=== PATIENT | male | born 1985 | race Caucasian/White ===

== ENCOUNTER 2019-01-15 10:29 | Emergency (ER) | payer OTHER, SELFPAY ==
[~2019-01-15] VITALS: Ht 182.9 cm; Wt 125.0 kg
[2019-01-15 10:30] VITALS: BP 165/87
== END 2019-01-15 11:46 | disposition home or self-care (01) ==
LOC: M ED 10:29
DX: J06.9 Acute upper respiratory infection, unspecified (principal)

== ENCOUNTER 2023-04-28 13:05 | Inpatient (IN) | payer MEDICAID, SELFPAY ==
[2023-04-28] VITALS (16 sets, daily range): BP systolic 98–152; BP diastolic 56–99; TEMP 97.6–98.3; O2SAT 92–100
[~2023-04-28] VITALS: Ht 185.4 cm; Wt 154.4 kg
[2023-04-28] MEDS ORDERED: ETOMIDATE INJ 20MG/10ML VIAL IV ONE (13:25)
[2023-04-28] MEDS ORDERED: ROCURONIUM BROMIDE 50MG/5ML VIAL IV ONE (13:25)
[2023-04-28] MEDS ORDERED: NS 1,000 ML IV ONE (13:25)
[2023-04-28] MEDS: propofoL 1,000 MG in IV 1 EA IV SCH ×3 (13:40→22:45)
[2023-04-28 13:46] LABS: ABG BASE EXCESS -4.9 (-2.0-2.0); ABG HCO3 23.2 MMOL/L (22.0-26.0); ABG O2 SATURATION 94.8 % (95.0-99.0); ABG PARTIAL PRESSURE CO2 54.5 mmHg (35.0-45.0); ABG PARTIAL PRESSURE O2 76.3 mmHg (75.0-100.0); ABG STANDARD HCO3 20.4 MMOL/L. (22.0-26.0); ABG TOTAL CO2 24.9 MMOL/L (22.0-29.0)
[2023-04-28 13:49] LABS: ABG pH (ARTERIAL) 7.247 UNITS (7.350-7.450)
[2023-04-28 13:58] LABS: HEMATOCRIT 47.9 % (42.0-52.0); HEMOGLOBIN 16.2 g/dl (13.5-17.5); MEAN CORPUSCULAR HEMOGLOBIN 30.1 pg (27.0-33.0); MEAN CORPUSCULAR HGB CONC 33.8 g/dl (32.0-36.5); PLATELET COUNT, AUTOMATED 200 10^3/uL (150-450); RED BLOOD COUNT 5.38 10^6/uL (4.30-6.10)
[2023-04-28] MEDS ORDERED: NS 1,000 ML IV SCH (14:10)
[2023-04-28 14:27] LABS: ETHYL ALCOHOL (ETHANOL) < 0.003 % (0.000-0.010)
[2023-04-28 14:28] LABS: ACETAMINOPHEN LEVEL < 2.0 UG/ML (10.0-20.0)
[2023-04-28 14:29] LABS: SALICYLATE LEVEL < 3.0 MG/DL (<30)
[2023-04-28 14:37] LABS: PHENCYCLIDINE URINE NEGATIVE (NEGATIVE)
[2023-04-28 14:38] LABS: ALBUMIN 4.3 G/DL (3.2-5.2); ALKALINE PHOSPHATASE 104 U/L (46-116); ALT/SGPT 942 U/L (7.0-40); BILIRUBIN,DIRECT 0.1 MG/DL (<0.4); BILIRUBIN,TOTAL 0.3 MG/DL (0.3-1.2); BLOOD UREA NITROGEN 31 MG/DL (9-23); CALCIUM LEVEL 9.3 MG/DL (8.5-10.1); CARBON DIOXIDE LEVEL 23 MMOL/L (20-31); CHLORIDE LEVEL 104 MMOL/L (98-107); CK-MB VALUE MASS 125.8 NG/ML (<3.6); CREATININE FOR GFR 2.61 MG/DL (0.70-1.30); GLOMERULAR FILTRATION RATE 29.6 (>60); GLUCOSE, FASTING 64 MG/DL (60-100); POTASSIUM SERUM 5.3 MMOL/L (3.5-5.1); SODIUM LEVEL 139 MMOL/L (136-145); THYROID STIMULATING HORMONE 4.624 uIU/ML (0.55-4.78); TOTAL PROTEIN 7.3 G/DL (5.7-8.2)
[2023-04-28 14:38] LABS: AMPHETAMINES LEVEL URINE NEGATIVE (NEGATIVE); BARBITURATES URINE NEGATIVE (NEGATIVE); BENZODIAZEPINES URINE NEGATIVE (NEGATIVE); COCAINE METABOLITE URINE NEGATIVE (NEGATIVE); METHADONE URINE NEGATIVE (NEGATIVE); OPIATES URINE NEGATIVE (NEGATIVE)
[2023-04-28 14:40] LABS: CANNABINOIDS URINE POSITIVE (NEGATIVE)
[2023-04-28 14:57] LABS: AST/SGOT 1084 U/L (<34); CPK CREATINE PHOSPHOKINASE 4502 U/L (46-171); MB/CK RELATIVE INDEX 2.79 (< OR =4)
[2023-04-28 15:34] LABS: ABG BASE EXCESS -4.6 (-2.0-2.0); ABG O2 SATURATION 90.6 % (95.0-99.0); ABG PARTIAL PRESSURE CO2 51.8 mmHg (35.0-45.0); ABG PARTIAL PRESSURE O2 59.3 mmHg (75.0-100.0); ABG STANDARD HCO3 20.6 MMOL/L. (22.0-26.0); ABG TOTAL CO2 24.6 MMOL/L (22.0-29.0); ABG pH (ARTERIAL) 7.266 UNITS (7.350-7.450)
[2023-04-28 15:41] LABS: LYMPHOCYTES 6 % (16-44); MONOCYTES 3 % (0-5); NEUTROPHILS 84 % (28-66); PLATELET ESTIMATE NORMAL (NORMAL)
[2023-04-28 15:42] LABS: ANISOCYTOSIS 1+
[2023-04-28 16:00] LABS: LIPASE 396 U/L (12-53)
[2023-04-28] MEDS ORDERED: PIPERACILLIN/TAZOBACTAM SOD 4.5 GM in D5W MINI-BAG PLUS 50 ML IV ONE (16:50)
[2023-04-28] MEDS ORDERED: NS IV ONE (17:40)
[2023-04-28] MEDS ORDERED: HOME MED LIST COMPLETE! XX SCH (18:10)
[2023-04-28] MEDS ORDERED: MIDAZOLAM INJ 2MG/2ML VIAL IV PRN (18:25)
[2023-04-28] MEDS ORDERED: VANCOMYCIN HCL 1,000 MG, VIAL MATE ADAPTER 1 EACH in D5W 250 ML IV SCH (18:25)
[2023-04-28] MEDS: NS 1,000 ML IV SCH (18:25)
[2023-04-28] MEDS ORDERED: VANCOMYCIN HCL 1,000 MG, VIAL MATE ADAPTER 1 EACH in D5W 250 ML IV ONE ×2 (20:00→21:00)
[2023-04-28 20:32] LABS: ABG BASE EXCESS -3.2 (-2.0-2.0); ABG HCO3 21.3 MMOL/L (22.0-26.0); ABG O2 SATURATION 98.7 % (95.0-99.0); ABG STANDARD HCO3 21.9 MMOL/L. (22.0-26.0); ABG TOTAL CO2 22.4 MMOL/L (22.0-29.0); ABG pH (ARTERIAL) 7.378 UNITS (7.350-7.450)
[2023-04-28] MEDS: IPRATROPIUM 0.5MG/ALBUTEROL 2.5MG INH SOL UD 3ML (DUONEB) NEB SCH (20:40)
[2023-04-28] MEDS: PANTOPRAZOLE 40MG VIAL IV SCH (21:14)
[2023-04-28] MEDS: CHLORHEXIDINE GLUCONATE 0.12 % 15ML UDC (PERIDEX ORAL RINSE) MT SCH (21:17)
[2023-04-28] MEDS: MIDAZOLAM 100MG/100ML-0.9%NACL 100 MG in IV 1 EA IV SCH (21:25)
[2023-04-28] MEDS ORDERED: HEPARIN SOD (PORCINE) 5000UNITS/ML 1ML VIAL/SYRINGE SC SCH (22:00)
[2023-04-28] MEDS ORDERED: DEXTROSE 50% 50ML SYRINGE IV STA (22:43)
[2023-04-28] MEDS ORDERED: SODIUM BICARBONATE 8.4% INJ 50ML SYRINGE IV STA (22:43)
[2023-04-28] MEDS ORDERED: HumuLIN R (REGULAR) INSULIN (NovoLIN R) **100U/ML** PER UNIT IV STA (22:43)
[2023-04-28] MEDS ORDERED: HEPARIN SOD (PORCINE) 5000UNITS/ML 1ML VIAL/SYRINGE IV ONE (23:30)
[2023-04-28 23:37] LABS: HEMATOCRIT 44.1 % (42.0-52.0); HEMOGLOBIN 14.9 g/dl (13.5-17.5); MEAN CORPUSCULAR HEMOGLOBIN 29.7 pg (27.0-33.0); MEAN CORPUSCULAR HGB CONC 33.8 g/dl (32.0-36.5); MEAN CORPUSCULAR VOLUME 87.8 fl (80.0-96.0); PLATELET COUNT, AUTOMATED 149 10^3/uL (150-450); RED BLOOD COUNT 5.02 10^6/uL (4.30-6.10); WHITE BLOOD COUNT 13.7 10^3/uL (4.0-10.0)
[2023-04-29] VITALS (39 sets, daily range): BP systolic 124–167; BP diastolic 82–100; TEMP 98.1–99.5; O2SAT 93–98
[2023-04-29 00:09] LABS: CALCIUM LEVEL 7.5 MG/DL (8.5-10.1); CREATININE FOR GFR 3.03 MG/DL (0.70-1.30); GLOMERULAR FILTRATION RATE 24.9 (>60); POTASSIUM SERUM 5.3 MMOL/L (3.5-5.1)
[2023-04-29] MEDS: HEPARIN DRIP 25,000 UNITS in IV 1 EA IV SCH ×2 (00:22→16:26)
[2023-04-29] MEDS ORDERED: ASPIRIN 300 MG SUPP PR ONE (00:25)
[2023-04-29] MEDS: PIPERACILLIN/TAZOBACTAM SOD 3.375 GM in D5W MINI-BAG PLUS 50 ML IV SCH ×4 (00:29→20:46)
[2023-04-29] MEDS: NS 1,000 ML IV SCH ×4 (00:30→23:55)
[2023-04-29] MEDS: propofoL 1,000 MG in IV 1 EA IV SCH ×9 (01:23→21:20)
[2023-04-29 05:05] LABS: HEMOGLOBIN 14.1 g/dl (13.5-17.5); MEAN CORPUSCULAR HEMOGLOBIN 29.9 pg (27.0-33.0); MEAN CORPUSCULAR HGB CONC 34.4 g/dl (32.0-36.5); MEAN CORPUSCULAR VOLUME 86.9 fl (80.0-96.0); PLATELET COUNT, AUTOMATED 152 10^3/uL (150-450); RED BLOOD COUNT 4.72 10^6/uL (4.30-6.10); WHITE BLOOD COUNT 12.3 10^3/uL (4.0-10.0)
[2023-04-29 05:40] LABS: ABG BASE EXCESS -1.5 (-2.0-2.0); ABG HCO3 23.8 MMOL/L (22.0-26.0); ABG PARTIAL PRESSURE CO2 42.3 mmHg (35.0-45.0); ABG PARTIAL PRESSURE O2 92.9 mmHg (75.0-100.0); ABG STANDARD HCO3 23.2 MMOL/L. (22.0-26.0); ABG TOTAL CO2 25.1 MMOL/L (22.0-29.0); ABG pH (ARTERIAL) 7.368 UNITS (7.350-7.450)
[2023-04-29 07:06] LABS: ALBUMIN 3.5 G/DL (3.2-5.2); BILIRUBIN,TOTAL 0.6 MG/DL (0.3-1.2); CALCIUM LEVEL 7.4 MG/DL (8.5-10.1); CREATININE FOR GFR 3.17 MG/DL (0.70-1.30); GLOMERULAR FILTRATION RATE 23.6 (>60); POTASSIUM SERUM 4.3 MMOL/L (3.5-5.1); TOTAL PROTEIN 5.7 G/DL (5.7-8.2)
[2023-04-29] MEDS: IPRATROPIUM 0.5MG/ALBUTEROL 2.5MG INH SOL UD 3ML (DUONEB) NEB SCH ×4 (07:29→19:19)
[2023-04-29] MEDS ORDERED: ASPIRIN 300 MG SUPP PR SCH (09:35)
[2023-04-29 09:44] LABS: HEPATITIS B SURFACE ANTIBODY POSITIVE (POSITIVE)
[2023-04-29 09:57] LABS: HEPATITIS B SURFACE ANTIGEN NEGATIVE (NEGATIVE)
[2023-04-29 10:17] LABS: HEPATITIS B CORE ANTIBODY IGM NEGATIVE (NEGATIVE)
[2023-04-29 10:18] LABS: HEPATITIS C VIRUS ABY INDEX 0.1 INDEX (<0.8)
[2023-04-29] MEDS: VANCOMYCIN HCL 750 MG, VIAL MATE ADAPTER 1 EACH in D5W 250 ML IV SCH ×2 (10:29→19:34)
[2023-04-29] MEDS: CHLORHEXIDINE GLUCONATE 0.12 % 15ML UDC (PERIDEX ORAL RINSE) MT SCH ×2 (10:29→20:46)
[2023-04-29] MEDS ORDERED: fentaNYL CITRATE/NaCl 1,000 MCG in IV 1 EA IV SCH (10:50)
[2023-04-29] MEDS ORDERED: FENTANYL DRIP LOCK BOX KEY 1 EACH XX PRN (10:50)
[2023-04-29] MEDS: MIDAZOLAM 100MG/100ML-0.9%NACL 100 MG in IV 1 EA IV SCH (11:42)
[2023-04-29] MEDS: ASPIRIN 81MG CHEW TABLET NG SCH (13:16)
[2023-04-29] MEDS: PANTOPRAZOLE 40MG VIAL IV SCH (20:47)
[2023-04-30] VITALS (38 sets, daily range): BP systolic 145–176; BP diastolic 87–103; TEMP 97.8–99.6; O2SAT 90–97
[2023-04-30] MEDS: propofoL 1,000 MG in IV 1 EA IV SCH ×3 (00:17→08:03)
[2023-04-30] MEDS: PIPERACILLIN/TAZOBACTAM SOD 3.375 GM in D5W MINI-BAG PLUS 50 ML IV SCH ×4 (02:05→20:21)
[2023-04-30] MEDS: MIDAZOLAM 100MG/100ML-0.9%NACL 100 MG in IV 1 EA IV SCH (04:14)
[2023-04-30 06:31] LABS: ABG BASE EXCESS -2.2 (-2.0-2.0); ABG O2 SATURATION 97.4 % (95.0-99.0); ABG PARTIAL PRESSURE O2 93.7 mmHg (75.0-100.0); ABG STANDARD HCO3 22.6 MMOL/L. (22.0-26.0); ABG TOTAL CO2 23.1 MMOL/L (22.0-29.0); ABG pH (ARTERIAL) 7.403 UNITS (7.350-7.450)
[2023-04-30 07:09] LABS: HEMATOCRIT 38.1 % (42.0-52.0); HEMOGLOBIN 12.9 g/dl (13.5-17.5); MEAN CORPUSCULAR HEMOGLOBIN 30.2 pg (27.0-33.0); MEAN CORPUSCULAR HGB CONC 33.9 g/dl (32.0-36.5); MEAN CORPUSCULAR VOLUME 89.2 fl (80.0-96.0); PLATELET COUNT, AUTOMATED 124 10^3/uL (150-450); RED BLOOD COUNT 4.27 10^6/uL (4.30-6.10); WHITE BLOOD COUNT 10.6 10^3/uL (4.0-10.0)
[2023-04-30] MEDS: IPRATROPIUM 0.5MG/ALBUTEROL 2.5MG INH SOL UD 3ML (DUONEB) NEB SCH ×4 (07:30→19:04)
[2023-04-30 07:43] LABS: ALBUMIN 2.9 G/DL (3.2-5.2); BILIRUBIN,TOTAL 0.5 MG/DL (0.3-1.2); CALCIUM LEVEL 7.5 MG/DL (8.5-10.1); CREATININE FOR GFR 2.63 MG/DL (0.70-1.30); GLOMERULAR FILTRATION RATE 29.3 (>60); TOTAL PROTEIN 5.3 G/DL (5.7-8.2)
[2023-04-30] MEDS: NS 1,000 ML IV SCH ×3 (07:47→20:21)
[2023-04-30] MEDS: VANCOMYCIN HCL 750 MG, VIAL MATE ADAPTER 1 EACH in D5W 250 ML IV SCH (08:06)
[2023-04-30] MEDS: ASPIRIN 81MG CHEW TABLET NG SCH (10:34)
[2023-04-30] MEDS: CHLORHEXIDINE GLUCONATE 0.12 % 15ML UDC (PERIDEX ORAL RINSE) MT SCH (10:34)
[2023-04-30] MEDS: HEPARIN DRIP 25,000 UNITS in IV 1 EA IV SCH (10:37)
[2023-04-30] MEDS ORDERED: HYDROMORPHONE HCL 0.5 MG/ 0.5 ML SYRINGE IV ONE (15:45)
[2023-04-30] MEDS: HEPARIN SOD (PORCINE) 5000UNITS/ML 1ML VIAL/SYRINGE IV PRN (19:25)
[2023-04-30 20:08] LABS: ABG BASE EXCESS -1.1 (-2.0-2.0); ABG O2 SATURATION 92.2 % (95.0-99.0); ABG PARTIAL PRESSURE CO2 31.9 mmHg (35.0-45.0); ABG STANDARD HCO3 23.4 MMOL/L. (22.0-26.0); ABG pH (ARTERIAL) 7.456 UNITS (7.350-7.450)
[2023-04-30] MEDS: PANTOPRAZOLE 40MG VIAL IV SCH (20:21)
[2023-04-30] MEDS ORDERED: HALOPERIDOL 5MG/ML 1ML VIAL IM STA (23:15)
[2023-05-01] VITALS (16 sets, daily range): BP systolic 144–202; BP diastolic 82–111; TEMP 97.9–99; O2SAT 91–99
[2023-05-01] MEDS ORDERED: LABETALOL 100MG/20ML VIAL IV ONE ×2 (00:40→02:35)
[2023-05-01] MEDS: PIPERACILLIN/TAZOBACTAM SOD 3.375 GM in D5W MINI-BAG PLUS 50 ML IV SCH ×2 (01:10→08:41)
[2023-05-01] MEDS: HEPARIN DRIP 25,000 UNITS in IV 1 EA IV SCH ×2 (01:28→19:52)
[2023-05-01 03:14] LABS: HEMATOCRIT 34.3 % (42.0-52.0); HEMOGLOBIN 11.5 g/dl (13.5-17.5); MEAN CORPUSCULAR HEMOGLOBIN 29.6 pg (27.0-33.0); MEAN CORPUSCULAR HGB CONC 33.5 g/dl (32.0-36.5); MEAN CORPUSCULAR VOLUME 88.4 fl (80.0-96.0); PLATELET COUNT, AUTOMATED 104 10^3/uL (150-450); RED BLOOD COUNT 3.88 10^6/uL (4.30-6.10); WHITE BLOOD COUNT 10.5 10^3/uL (4.0-10.0)
[2023-05-01 04:14] LABS: ALBUMIN 3.1 G/DL (3.2-5.2); CALCIUM LEVEL 7.8 MG/DL (8.5-10.1); CREATININE FOR GFR 2.21 MG/DL (0.70-1.30); GLOMERULAR FILTRATION RATE 35.8 (>60); POTASSIUM SERUM 4.1 MMOL/L (3.5-5.1); TOTAL PROTEIN 5.6 G/DL (5.7-8.2)
[2023-05-01 05:57] LABS: ABG BASE EXCESS 0.1 (-2.0-2.0); ABG HCO3 23.4 MMOL/L (22.0-26.0); ABG O2 SATURATION 97.7 % (95.0-99.0); ABG PARTIAL PRESSURE CO2 33.5 mmHg (35.0-45.0); ABG PARTIAL PRESSURE O2 106.6 mmHg (75.0-100.0); ABG STANDARD HCO3 24.6 MMOL/L. (22.0-26.0); ABG TOTAL CO2 24.4 MMOL/L (22.0-29.0); ABG pH (ARTERIAL) 7.462 UNITS (7.350-7.450)
[2023-05-01] MEDS: NS 1,000 ML IV SCH ×3 (07:13→19:52)
[2023-05-01] MEDS: IPRATROPIUM 0.5MG/ALBUTEROL 2.5MG INH SOL UD 3ML (DUONEB) NEB SCH ×4 (07:30→20:11)
[2023-05-01] MEDS: dexmedeTOMidine 200 MCG in IV 1 EA IV SCH ×5 (08:43→22:34)
[2023-05-01] MEDS ORDERED: ASPIRIN 300 MG SUPP PR SCH (09:00)
[2023-05-01] MEDS: PIPERACILLIN/TAZOBACTAM SOD 4.5 GM in D5W MINI-BAG PLUS 50 ML IV SCH ×2 (14:45→19:51)
[2023-05-01] MEDS ORDERED: LABETALOL 100MG/20ML VIAL IV PRN (15:00)
[2023-05-01 19:05] LABS: BARBITURATES URINE NEGATIVE (NEGATIVE); COCAINE METABOLITE URINE NEGATIVE (NEGATIVE); METHADONE URINE NEGATIVE (NEGATIVE); OPIATES URINE NEGATIVE (NEGATIVE); PHENCYCLIDINE URINE NEGATIVE (NEGATIVE)
[2023-05-01 19:09] LABS: AMPHETAMINES LEVEL URINE NEGATIVE (NEGATIVE)
[2023-05-01 19:10] LABS: BENZODIAZEPINES URINE POSITIVE (NEGATIVE); CANNABINOIDS URINE POSITIVE (NEGATIVE)
[2023-05-01] MEDS: PANTOPRAZOLE 40MG VIAL IV SCH (21:05)
[2023-05-01] MEDS: HEPARIN SOD (PORCINE) 5000UNITS/ML 1ML VIAL/SYRINGE IV PRN (22:11)
[2023-05-01 23:14] LABS: HEMATOCRIT 35.7 % (42.0-52.0); HEMOGLOBIN 11.9 g/dl (13.5-17.5); MEAN CORPUSCULAR HEMOGLOBIN 29.6 pg (27.0-33.0); MEAN CORPUSCULAR HGB CONC 33.3 g/dl (32.0-36.5); MEAN CORPUSCULAR VOLUME 88.8 fl (80.0-96.0); PLATELET COUNT, AUTOMATED 116 10^3/uL (150-450); RED BLOOD COUNT 4.02 10^6/uL (4.30-6.10)
[2023-05-02] VITALS (12 sets, daily range): BP systolic 137–189; BP diastolic 83–119; TEMP 97.2–99.5; O2SAT 95–98
[2023-05-02] MEDS: PIPERACILLIN/TAZOBACTAM SOD 4.5 GM in D5W MINI-BAG PLUS 50 ML IV SCH ×4 (01:46→20:45)
[2023-05-02] MEDS: dexmedeTOMidine 200 MCG in IV 1 EA IV SCH (02:10)
[2023-05-02] MEDS ORDERED: hydrALAZINE 20MG/ML 1ML VIAL IV ONE ×2 (02:25→05:35)
[2023-05-02 05:07] LABS: BASO % 0.4 % (0.0-1.0); EOS # 0.2 10^3/uL (0.0-0.5); HEMATOCRIT 35.4 % (42.0-52.0); LYMPH # 1.9 10^3/uL (1.5-5.0); LYMPH % 16.7 % (24.0-44.0); MEAN CORPUSCULAR HEMOGLOBIN 30.2 pg (27.0-33.0); MEAN CORPUSCULAR HGB CONC 33.9 g/dl (32.0-36.5); MEAN CORPUSCULAR VOLUME 89.2 fl (80.0-96.0); MONO # 1.4 10^3/uL (0.0-0.8); MONO % 12.3 % (2.0-8.0); NEUTROPHILS # 7.6 10^3/uL (1.5-8.5); NEUTROPHILS % 66.8 % (36.0-66.0); PLATELET COUNT, AUTOMATED 130 10^3/uL (150-450); RED BLOOD COUNT 3.97 10^6/uL (4.30-6.10); WHITE BLOOD COUNT 11.4 10^3/uL (4.0-10.0)
[2023-05-02 05:20] LABS: INR 1.04; PROTHROMBIN TIME 13.8 SECONDS (12.5-14.5)
[2023-05-02 05:53] LABS: ALBUMIN 3.2 G/DL (3.2-5.2); BILIRUBIN,TOTAL 1.1 MG/DL (0.3-1.2); CALCIUM LEVEL 8.5 MG/DL (8.5-10.1); CK-MB VALUE MASS 2.4 NG/ML (<3.6); CREATININE FOR GFR 1.94 MG/DL (0.70-1.30); GLOMERULAR FILTRATION RATE 41.7 (>60); MB/CK RELATIVE INDEX 0.05 (< OR =4); POTASSIUM SERUM 4.5 MMOL/L (3.5-5.1)
[2023-05-02] MEDS: IPRATROPIUM 0.5MG/ALBUTEROL 2.5MG INH SOL UD 3ML (DUONEB) NEB SCH ×2 (07:10→11:34)
[2023-05-02] MEDS: ASPIRIN 81MG CHEW TABLET PO SCH (09:24)
[2023-05-02] MEDS: NS 1,000 ML IV SCH ×2 (09:43→20:45)
[2023-05-02] MEDS ORDERED: HEPARIN SOD (PORCINE) 5000UNITS/ML 1ML VIAL/SYRINGE SQ SCH (10:40)
[2023-05-02] MEDS: METOPROLOL TART 25 MG TABLET PO SCH ×2 (11:28→20:46)
[2023-05-02] MEDS ORDERED: CLOPIDOGREL 300 MG TAB (PLAVIX) PO STA (11:41)
[2023-05-02] MEDS: ATORVASTATIN 20 MG TAB PO SCH (12:36)
[2023-05-02 12:42] LABS: HEMOGLOBIN A1c 5.2 % (4.0-6.0)
[2023-05-02 12:56] LABS: CHOLESTEROL RISK RATIO 7.31 (<5); HDL CHOLESTEROL 26.1 MG/DL (>40); LDL CHOLESTEROL 103.7 MG/DL (<100); NON-HDL-C 164.9 MG/DL
[2023-05-02] MEDS ORDERED: PIPERACILLIN/TAZOBACTAM SOD 3.375 GM in D5W MINI-BAG PLUS 50 ML IV SCH (14:00)
[2023-05-02] MEDS: HEPARIN SOD (PORCINE) 5000UNITS/ML 1ML VIAL/SYRINGE SQ SCH ×2 (15:03→20:48)
[2023-05-02] MEDS ORDERED: amLODIPine 5 MG TAB PO SCH (18:35)
[2023-05-02] MEDS: PANTOPRAZOLE 40MG VIAL IV SCH (20:45)
[2023-05-02] MEDS: RAMELTEON 8 MG TAB (ROZEREM) PO PRN (20:45)
[2023-05-03 00:15] VITALS: BP 147/98; TEMP 97.6; O2SAT 98
[2023-05-03] MEDS: PIPERACILLIN/TAZOBACTAM SOD 4.5 GM in D5W MINI-BAG PLUS 50 ML IV SCH ×2 (02:39→09:19)
[2023-05-03 04:08] VITALS: BP 141/90; TEMP 97.6; O2SAT 97
[2023-05-03] MEDS: HEPARIN SOD (PORCINE) 5000UNITS/ML 1ML VIAL/SYRINGE SQ SCH ×3 (05:16→21:15)
[2023-05-03 06:54] LABS: BASO # 0.1 10^3/uL (0.0-0.2); BASO % 0.7 % (0.0-1.0); EOS # 0.7 10^3/uL (0.0-0.5); EOS % 6.2 % (0.0-3.0); HEMATOCRIT 36.1 % (42.0-52.0); HEMOGLOBIN 11.8 g/dl (13.5-17.5); LYMPH # 1.5 10^3/uL (1.5-5.0); LYMPH % 14.3 % (24.0-44.0); MEAN CORPUSCULAR HEMOGLOBIN 29.9 pg (27.0-33.0); MEAN CORPUSCULAR HGB CONC 32.7 g/dl (32.0-36.5); MEAN CORPUSCULAR VOLUME 91.4 fl (80.0-96.0); MONO # 1.4 10^3/uL (0.0-0.8); MONO % 12.7 % (2.0-8.0); NEUTROPHILS # 6.8 10^3/uL (1.5-8.5); NEUTROPHILS % 63.5 % (36.0-66.0); PLATELET COUNT, AUTOMATED 138 10^3/uL (150-450); RED BLOOD COUNT 3.95 10^6/uL (4.30-6.10); WHITE BLOOD COUNT 10.6 10^3/uL (4.0-10.0)
[2023-05-03 07:11] LABS: ALBUMIN 3.2 G/DL (3.2-5.2); BILIRUBIN,TOTAL 1.1 MG/DL (0.3-1.2); CALCIUM LEVEL 8.7 MG/DL (8.5-10.1); CREATININE FOR GFR 1.69 MG/DL (0.70-1.30); GLOMERULAR FILTRATION RATE 48.9 (>60); MAGNESIUM LEVEL 2.1 MG/DL (1.8-2.4); POTASSIUM SERUM 4.1 MMOL/L (3.5-5.1)
[2023-05-03 07:59] VITALS: BP 154/92; TEMP 97.6; O2SAT 99
[2023-05-03] MEDS ORDERED: amLODIPine 5 MG TAB PO SCH (09:00)
[2023-05-03] MEDS: CLOPIDOGREL 75 MG TAB PO SCH (09:20)
[2023-05-03] MEDS: ATORVASTATIN 20 MG TAB PO SCH (09:20)
[2023-05-03] MEDS: ASPIRIN 81MG CHEW TABLET PO SCH (09:20)
[2023-05-03] MEDS: METOPROLOL TART 25 MG TABLET PO SCH ×2 (09:21→21:15)
[2023-05-03] MEDS: NS 1,000 ML IV SCH (10:18)
[2023-05-03 11:29] VITALS: BP 122/78; TEMP 97.1; O2SAT 98
[2023-05-03 15:31] VITALS: BP 142/83; TEMP 97.6; O2SAT 98
[2023-05-03 20:00] VITALS: BP 142/96; TEMP 97.2; O2SAT 98
[2023-05-03] MEDS: PANTOPRAZOLE 40MG VIAL IV SCH (21:14)
[2023-05-03] MEDS: AUGMENTIN 875 MG TAB PO SCH (21:15)
[2023-05-03] MEDS: RAMELTEON 8 MG TAB (ROZEREM) PO PRN (22:40)
[2023-05-04] VITALS: BP 158/96; TEMP 97.7; O2SAT 97
[2023-05-04 04:00] VITALS: BP 150/92; TEMP 97.1; O2SAT 98
[2023-05-04 05:44] LABS: BASO # 0.1 10^3/uL (0.0-0.2); BASO % 0.9 % (0.0-1.0); EOS # 0.7 10^3/uL (0.0-0.5); EOS % 6.2 % (0.0-3.0); HEMATOCRIT 34.5 % (42.0-52.0); HEMOGLOBIN 11.8 g/dl (13.5-17.5); LYMPH # 1.7 10^3/uL (1.5-5.0); LYMPH % 14.9 % (24.0-44.0); MEAN CORPUSCULAR HGB CONC 34.2 g/dl (32.0-36.5); MEAN CORPUSCULAR VOLUME 87.8 fl (80.0-96.0); MONO # 1.4 10^3/uL (0.0-0.8); MONO % 12.6 % (2.0-8.0); NEUTROPHILS % 61.9 % (36.0-66.0); PLATELET COUNT, AUTOMATED 142 10^3/uL (150-450); RED BLOOD COUNT 3.93 10^6/uL (4.30-6.10); WHITE BLOOD COUNT 11.3 10^3/uL (4.0-10.0)
[2023-05-04] MEDS: HEPARIN SOD (PORCINE) 5000UNITS/ML 1ML VIAL/SYRINGE SQ SCH ×3 (06:01→20:46)
[2023-05-04 06:22] LABS: ALBUMIN 3.1 G/DL (3.2-5.2); BILIRUBIN,TOTAL 0.7 MG/DL (0.3-1.2); CALCIUM LEVEL 8.6 MG/DL (8.5-10.1); CREATININE FOR GFR 1.56 MG/DL (0.70-1.30); GLOMERULAR FILTRATION RATE 53.6 (>60); MAGNESIUM LEVEL 1.9 MG/DL (1.8-2.4); POTASSIUM SERUM 3.9 MMOL/L (3.5-5.1); TOTAL PROTEIN 5.8 G/DL (5.7-8.2)
[2023-05-04] MEDS: AUGMENTIN 875 MG TAB PO SCH ×2 (08:43→20:35)
[2023-05-04] MEDS: CLOPIDOGREL 75 MG TAB PO SCH (08:43)
[2023-05-04] MEDS: ATORVASTATIN 20 MG TAB PO SCH (08:43)
[2023-05-04] MEDS: ASPIRIN 81MG CHEW TABLET PO SCH (08:43)
[2023-05-04] MEDS: METOPROLOL TART 25 MG TABLET PO SCH ×2 (08:48→20:35)
[2023-05-04 09:04] VITALS: TEMP 97.2; O2SAT 98
[2023-05-04 15:55] VITALS: BP 146/96; TEMP 98; O2SAT 97
[2023-05-04 16:08] LABS: BODY FLUID CULTURE Not indicated. (.); LEGIONELLA ANTIGEN URINE Negative (Negative); ORGANISM ID Not indicated. (.); SPECIMEN SOURCE Urine (.); URINE STREP PNEUMONIAE ANTIGEN Negative (Negative)
[2023-05-04 19:58] VITALS: BP 146/92; TEMP 97; O2SAT 96
[2023-05-04] MEDS: RAMELTEON 8 MG TAB (ROZEREM) PO PRN (20:36)
[2023-05-04] MEDS: PANTOPRAZOLE 40MG VIAL IV SCH (20:36)
[2023-05-04 23:02] VITALS: BP 147/100; TEMP 98.2; O2SAT 98
[2023-05-04 23:10] LABS: HEMATOCRIT 35.7 % (42.0-52.0); HEMOGLOBIN 12.3 g/dl (13.5-17.5); MEAN CORPUSCULAR HEMOGLOBIN 29.9 pg (27.0-33.0); MEAN CORPUSCULAR HGB CONC 34.5 g/dl (32.0-36.5); MEAN CORPUSCULAR VOLUME 86.9 fl (80.0-96.0); PLATELET COUNT, AUTOMATED 169 10^3/uL (150-450); RED BLOOD COUNT 4.11 10^6/uL (4.30-6.10); WHITE BLOOD COUNT 12.9 10^3/uL (4.0-10.0)
[2023-05-05] MEDS: HEPARIN SOD (PORCINE) 5000UNITS/ML 1ML VIAL/SYRINGE SQ SCH ×2 (05:37→14:16)
[2023-05-05 05:45] VITALS: BP 136/83; TEMP 98.2; O2SAT 97
[2023-05-05 06:11] LABS: BASO # 0.1 10^3/uL (0.0-0.2); BASO % 0.8 % (0.0-1.0); EOS # 0.7 10^3/uL (0.0-0.5); EOS % 5.1 % (0.0-3.0); HEMATOCRIT 34.6 % (42.0-52.0); LYMPH # 2.2 10^3/uL (1.5-5.0); LYMPH % 16.5 % (24.0-44.0); MEAN CORPUSCULAR HEMOGLOBIN 30.2 pg (27.0-33.0); MEAN CORPUSCULAR HGB CONC 34.7 g/dl (32.0-36.5); MEAN CORPUSCULAR VOLUME 86.9 fl (80.0-96.0); MONO # 1.5 10^3/uL (0.0-0.8); MONO % 11.4 % (2.0-8.0); NEUTROPHILS # 8.1 10^3/uL (1.5-8.5); NEUTROPHILS % 62.3 % (36.0-66.0); PLATELET COUNT, AUTOMATED 178 10^3/uL (150-450); RED BLOOD COUNT 3.98 10^6/uL (4.30-6.10); WHITE BLOOD COUNT 13.1 10^3/uL (4.0-10.0)
[2023-05-05 06:43] LABS: ALBUMIN 3.4 G/DL (3.2-5.2); BILIRUBIN,TOTAL 0.7 MG/DL (0.3-1.2); CREATININE FOR GFR 1.55 MG/DL (0.70-1.30); MAGNESIUM LEVEL 1.8 MG/DL (1.8-2.4); TOTAL PROTEIN 6.3 G/DL (5.7-8.2)
[2023-05-05] MEDS ORDERED: LACTOBACILLUS ACIDOPHILUS CAP (BACID) PO SCH (08:00)
[2023-05-05] MEDS: CLOPIDOGREL 75 MG TAB PO SCH (08:11)
[2023-05-05] MEDS: ASPIRIN 81MG CHEW TABLET PO SCH (08:11)
[2023-05-05] MEDS: AUGMENTIN 875 MG TAB PO SCH (08:11)
[2023-05-05] MEDS: ATORVASTATIN 20 MG TAB PO SCH (08:11)
[2023-05-05 08:14] VITALS: BP 148/105
[2023-05-05] MEDS: METOPROLOL TART 25 MG TABLET PO SCH (08:15)
[2023-05-05] MEDS ORDERED: CLOP75TA2 PO (11:04)
[2023-05-05] MEDS ORDERED: METO1TAB87 PO ×2 (11:04→14:04)
[2023-05-05] MEDS ORDERED: ASPI81CH8 PO (11:04)
[2023-05-05] MEDS ORDERED: ATOR1TAB21 PO (11:04)
[2023-05-05] MEDS ORDERED: AMLO1TAB25 PO (11:04)
[2023-05-05 11:11] LABS: C REACTIVE PROTEIN QUANTITATIV 3.5 MG/DL (<1.0)
[2023-05-05 14:00] VITALS: BP 144/82; TEMP 98.8; O2SAT 97
[2023-05-05] MEDS ORDERED: AMOX875T2 PO (14:04)
[2023-05-05] MEDS ORDERED: ATOR40TA75 PO (14:04)
== END 2023-05-05 15:52 | disposition home or self-care (01) | DRG 720 ==
LOC: M ED 13:05 → M ED INP 18:24 → M ICU 20:25 → M PCU 05-02 15:14 → M MSPAV 05-04 22:59
PROVIDERS: ADMIT Internal Medicine; ATTEND Internal Medicine
PROC: 0BH17EZ Insertion of Endotracheal Airway into Trachea, Via Natural or Artificial Opening (ICD-10-PCS; principal; 2023-04-28)
PROC: 5A1945Z Respiratory Ventilation, 24-96 Consecutive Hours (ICD-10-PCS; 2023-04-28)
PROC: B246ZZZ Ultrasonography of Right and Left Heart (ICD-10-PCS; 2023-04-29)
DX: A41.9 Sepsis, unspecified organism (principal); I21.9 Acute myocardial infarction, unspecified; J69.0 Pneumonitis due to inhalation of food and vomit; R65.21 Severe sepsis with septic shock; E87.29 Other acidosis; J96.01 Acute respiratory failure with hypoxia; F11.20 Opioid dependence, uncomplicated; J96.02 Acute respiratory failure with hypercapnia; G93.41 Metabolic encephalopathy; N17.9 Acute kidney failure, unspecified; J15.211 Pneumonia due to Methicillin susceptible Staphylococcus aureus; I50.30 Unspecified diastolic (congestive) heart failure; M62.82 Rhabdomyolysis; I11.0 Hypertensive heart disease with heart failure; E87.5 Hyperkalemia; Z68.42 Body mass index [BMI] 45.0-49.9, adult; E66.2 Morbid (severe) obesity with alveolar hypoventilation; K76.0 Fatty (change of) liver, not elsewhere classified; I45.10 Unspecified right bundle-branch block; F17.290 Nicotine dependence, other tobacco product, uncomplicated; N39.0 Urinary tract infection, site not specified; R74.01 Elevation of levels of liver transaminase levels; Z20.822 Contact with and (suspected) exposure to COVID-19; I21.A1 Myocardial infarction type 2

== ENCOUNTER → 2023-06-09 | Outpatient (CLI) | payer MEDICAID ==
[~2023-06-09] MED LIST: AMLO1TAB25 PO; AMOX875T2 PO; ASPI81CH8 PO; ATOR1TAB21 PO; ATOR40TA75 PO; CLOP75TA2 PO; METO1TAB87 PO
[2023-06-09 13:04] LABS: BASO # 0.1 10^3/uL (0.0-0.2); BASO % 0.5 % (0.0-1.0); EOS # 0.4 10^3/uL (0.0-0.5); EOS % 3.5 % (0.0-3.0); HEMATOCRIT 39.7 % (42.0-52.0); HEMOGLOBIN 13.5 g/dl (13.5-17.5); LYMPH # 3.1 10^3/uL (1.5-5.0); LYMPH % 29.9 % (24.0-44.0); MEAN CORPUSCULAR HEMOGLOBIN 29.4 pg (27.0-33.0); MEAN CORPUSCULAR VOLUME 86.5 fl (80.0-96.0); MONO # 0.6 10^3/uL (0.0-0.8); MONO % 5.9 % (2.0-8.0); NEUTROPHILS # 6.1 10^3/uL (1.5-8.5); NEUTROPHILS % 59.1 % (36.0-66.0); PLATELET COUNT, AUTOMATED 228 10^3/uL (150-450); RED BLOOD COUNT 4.59 10^6/uL (4.30-6.10); WHITE BLOOD COUNT 10.2 10^3/uL (4.0-10.0)
[2023-06-09 13:25] LABS: IRON (FE) 80 UG/DL (65-175)
[2023-06-09 13:26] LABS: ALBUMIN 3.8 G/DL (3.2-5.2); ALKALINE PHOSPHATASE 85 U/L (46-116); ALT/SGPT 83 U/L (7.0-40); AST/SGOT 32 U/L (<34); BILIRUBIN,TOTAL 0.3 MG/DL (0.3-1.2); BLOOD UREA NITROGEN 12 MG/DL (9-23); CARBON DIOXIDE LEVEL 25 MMOL/L (20-31); CHLORIDE LEVEL 106 MMOL/L (98-107); CREATININE FOR GFR 0.77 MG/DL (0.70-1.30); GLOMERULAR FILTRATION RATE > 60.0 (>60); GLUCOSE, FASTING 145 MG/DL (60-100); PERCENT SATURATION 27.1 % (19.7-50.0); POTASSIUM SERUM 3.9 MMOL/L (3.5-5.1); SODIUM LEVEL 140 MMOL/L (136-145); TOTAL IRON BINDING CAPACITY 295 UG/DL (250-425); TOTAL PROTEIN 7.2 G/DL (5.7-8.2)
[2023-06-09 13:29] LABS: FERRITIN 175.6 NG/ML (10.5-307.3)
[2023-06-09 13:30] LABS: FOLATE > 24.0 NG/ML (>5.4); VITAMIN B12 LEVEL 495 PG/ML (211-911)
== END ==
LOC: M LAB 12:19
PROVIDERS: ATTEND Family Medicine
DX: N17.9 Acute kidney failure, unspecified (principal)

== ENCOUNTER → 2023-06-16 | Outpatient (CLI) | payer MEDICAID | LOC: M SLEEP HO 10:48 | PROVIDERS: ATTEND Family Medicine | DX: R06.83 Snoring (principal); G47.30 Sleep apnea, unspecified ==

== ENCOUNTER → 2023-12-30 | Outpatient (CLI) | payer MEDICAID, OTHER | LOC: M RAD 14:09 | PROVIDERS: ATTEND Urology | DX: N43.3 Hydrocele, unspecified (principal) ==

== ENCOUNTER → 2024-01-12 | Outpatient (CLI) | payer OTHER ==
[2024-01-12 13:08] LABS: HEMATOCRIT 47.1 % (42.0-52.0); HEMOGLOBIN 16.2 g/dl (13.5-17.5); MEAN CORPUSCULAR HEMOGLOBIN 29.8 pg (27.0-33.0); MEAN CORPUSCULAR HGB CONC 34.4 g/dl (32.0-36.5); MEAN CORPUSCULAR VOLUME 86.6 fl (80.0-96.0); PLATELET COUNT, AUTOMATED 249 10^3/uL (150-450); RED BLOOD COUNT 5.44 10^6/uL (4.30-6.10); WHITE BLOOD COUNT 9.1 10^3/uL (4.0-10.0)
[2024-01-12 13:25] LABS: ALBUMIN 4.1 G/DL (3.2-5.2); ALKALINE PHOSPHATASE 69 U/L (46-116); ALT/SGPT 40 U/L (7.0-40); AST/SGOT 19 U/L (<34); BILIRUBIN,TOTAL 0.5 MG/DL (0.3-1.2); BLOOD UREA NITROGEN 10 MG/DL (9-23); CALCIUM LEVEL 9.4 MG/DL (8.5-10.1); CARBON DIOXIDE LEVEL 28 MMOL/L (20-31); CHLORIDE LEVEL 106 MMOL/L (98-107); CREATININE FOR GFR 0.89 MG/DL (0.70-1.30); GLOMERULAR FILTRATION RATE > 60.0 (>60); GLUCOSE, FASTING 89 MG/DL (60-100); POTASSIUM SERUM 4.5 MMOL/L (3.5-5.1); SODIUM LEVEL 137 MMOL/L (136-145); TOTAL PROTEIN 7.2 G/DL (5.7-8.2)
== END ==
LOC: M RAD 11:55
PROVIDERS: ATTEND Urology
DX: N43.3 Hydrocele, unspecified (principal)

== ENCOUNTER 2024-03-21 07:48 | Day surgery (SDC) | payer OTHER ==
[~2024-03-21] VITALS: Ht 182.9 cm; Wt 137.4 kg
[~2024-03-21 07:48] MED LIST changes: +ASPI81CH48 PO
[2024-03-21] MEDS: LR 1,000 ML IV SCH (08:32)
[2024-03-21] MEDS ORDERED: ONDANSETRON 4MG 2ML VIAL As Ordered ONE (09:02)
[2024-03-21] MEDS ORDERED: LIDOCAINE 2% 100MG/5ML SDV (FOR ANES.) As Ordered ONE (09:02)
[2024-03-21] MEDS ORDERED: propofoL 200 MG/20 ML VIAL As Ordered ONE (09:02)
[2024-03-21] MEDS ORDERED: MIDAZOLAM INJ 2MG/2ML VIAL As Ordered ONE (09:20)
[2024-03-21] MEDS ORDERED: fentaNYL 100 MCG/2 ML INJECTION As Ordered ONE (09:20)
[2024-03-21] MEDS: ceFAZolin SOD 1 GM in D5W MINI-BAG PLUS 50 ML IV ONE (09:45)
[2024-03-21] MEDS ORDERED: ACETAMINOPHEN 1000MG 100ML IV BAG As Ordered ONE (09:45)
[2024-03-21] MEDS: ceFAZolin SOD 2 GM in IV 1 EA IV ONE (09:45)
[2024-03-21] MEDS: LIDOCAINE 2% MDV 20ML VIAL As Ordered ONE (10:21)
[2024-03-21] MEDS ORDERED: oxyCODONE 5MG TAB PO PRN (10:30)
[2024-03-21] MEDS ORDERED: HYDROMORPHONE HCL 0.5 MG/ 0.5 ML SYRINGE IV PRN (10:30)
[2024-03-21] MEDS ORDERED: ONDANSETRON 4MG 2ML VIAL IV PRN (10:30)
[2024-03-21] MEDS ORDERED: fentaNYL 100 MCG/2 ML INJECTION IV PRN (10:30)
[2024-03-21] MEDS ORDERED: LR 1,000 ML IV SCH (10:30)
[2024-03-21] MEDS ORDERED: HYDR-3713 PO (10:34)
[2024-03-21] MEDS ORDERED: CEPH500C PO (10:34)
[2024-03-21 11:15] VITALS: BP 123/86; TEMP 97; O2SAT 96
== END 2024-03-21 11:40 | disposition home or self-care (01) ==
LOC: M SDC 07:48
PROVIDERS: ATTEND Urology
DX: N43.3 Hydrocele, unspecified (principal); I25.2 Old myocardial infarction; R06.83 Snoring; F17.219 Nicotine dependence, cigarettes, with unspecified nicotine-induced disorders
CPT/HCPCS: 54640; 55040; 88302; J0131; J0665; J0690; J1100; J2250; J2405; J3010